=== PATIENT | male | born 1970 | race African-American/Black ===

== ENCOUNTER 2019-12-18 15:25 | Emergency (ER) | payer OTHER ==
[~2019-12-18] VITALS: Ht 188 cm; Wt 127.2 kg
--- NOTE | 2019-12-18 15:40 | PHYS DOC ---
Adult General Chief Complaint Chief Complaint: UPPER EXTREMITY INJURY HPI HPI Patient is a 49 year old -[place] male who is brought in from [facility] secondary to concern for right arm injury. Patient reportedly slipped and fell in the shower last night and has pain in the right forearm just distal to the elbow. He also complains of pain in the right shoulder and the right wrist. Complains of numbness in fingers 3 4 and 5 on the right. No medication given prior to arrival. Pain is 8/10 Review of Systems Review of Systems All other systems were reviewed and found to be within normal limits, except as documented in this note. Physical Exam Physical Exam Constitutional: Well developed, well nourished, no acute distress, non-toxic appearance. [] HENT: Normocephalic, atraumatic, bilateral external ears normal, oropharynx moist, no oral exudates, nose normal. [] Eyes: PERRLA, EOMI, conjunctiva normal, no discharge. [] Neck: Normal range of motion, no tenderness, supple, no stridor. [] Cardiovascular:Heart rate regular rhythm, no murmur [] Lungs & Thorax: Bilateral breath sounds clear to auscultation [] Abdomen: Bowel sounds normal, soft, no tenderness, no masses, no pulsatile masses. [] Skin: Warm, dry, no erythema, no rash. [] Back: No tenderness, no CVA tenderness. [] Extremities: Patient has some swelling to the posterior lateral aspect of the right forearm with tenderness to palpation just distal to the elbow. He complains of numbness in the fingers 3 through 5. No other obvious deformities. Neurologic: Alert and oriented X 3, no focal deficits noted. [] Psychologic: Affect normal, judgement normal, mood normal. [] Current Patient Data Vital Signs Vital Signs Date Time Temp Pulse Resp B/P (MAP) Pulse Ox O2 Delivery O2 Flow Rate FiO2 12/18/19 15:28 97.9 54 17 113/56 (75) 98 Room Air 97.9 EKG EKG [] Radiology/Procedures Radiology/Procedures WRIST 3V RIGHT, FOREARM RIGHT, ELBOW RIGHT 3V, SHOULDER 2+V RIGHT History: Pain after a fall Comparison: None. Right wrist radiographs: Findings: 3 views of the right wrist are submitted. No acute fracture or dislocation is identified. IMPRESSION: 1. No acute osseous abnormality is identified by radiographs. Right elbow radiographs: FINDINGS: 3 views of the right elbow are submitted. There is mild cortical deformity of the right radial head suspicious for nondisplaced fracture although no significant displacement of the fat pads about the elbow. IMPRESSION: 1. Findings are suspicious for nondisplaced right radial head fracture. Right forearm: 2 views of the right forearm are submitted. No acute fracture or dislocation is identified of the right forearm by radiographs other than some bony irregularity of the right radial head as described for elbow radiographs. IMPRESSION: 1. Other than some mild bony irregularity as described for elbow radiographs of the right radial head, no acute osseous abnormality is identified by radiographs. Right shoulder radiographs: FINDINGS: 3 views of the right shoulder submitted. There is mild degenerative change of the right acromioclavicular joint. No acute fracture or dislocation is identified by radiographs. IMPRESSION: 1. No acute osseous abnormality is identified by radiographs.[] Course & Med Decision Making Course & Med Decision Making Pertinent Labs and Imaging studies reviewed. (See chart for details) 1721: X-rays suspicious for a radial head fracture. Patient will be placed in a posterior long-arm splint and a sling and will follow up orthopedics outpatient. 1724: Patient placed in a posterior long-arm splint and sling by nursing staff. Neurovascular intact post application patient tolerated well. Dragon Disclaimer Dragon Disclaimer This electronic medical record was generated, in whole or in part, using a voice recognition dictation system. Departure Departure Impression: Primary Impression: Right radial head fracture Additional Impression: Fall Disposition: 01 HOME, SELF-CARE Condition: STABLE Referrals: NO PCP (PCP) JORGE RAMIREZ MD Please call for follow up tomorrow. Patient Instructions: Radial Head Fracture Additional Instructions: Please call orthopedics for follow up tomorrow. Please wear sling and keep splint clean and dry. Scripts Hydrocodone/Apap 5-325 (NORCO 5-325 TABLET) 1 Each Tablet 1 TAB PO PRN Q6HRS PRN for PAIN, #10 TAB 0 Refills Prov: STEPHANIE NGUYEN DO 12/18/19 Ibuprofen (IBUPROFEN) 800 Mg Tablet 800 MG PO PRN Q8HRS PRN for INFLAMMATION, #20 TAB Prov: STEPHANIE NGUYEN DO 12/18/19 Problem Qualifiers STEPHANIE NGUYEN DO Dec 18, 2019 15:40
--- NOTE | 2019-12-18 17:16 | RAD ---
WRIST 3V RIGHT, FOREARM RIGHT, ELBOW RIGHT 3V, SHOULDER 2+V RIGHT History: Pain after a fall Comparison: None. Right wrist radiographs: Findings: 3 views of the right wrist are submitted. No acute fracture or dislocation is identified. IMPRESSION: 1. No acute osseous abnormality is identified by radiographs. Right elbow radiographs: FINDINGS: 3 views of the right elbow are submitted. There is mild cortical deformity of the right radial head suspicious for nondisplaced fracture although no significant displacement of the fat pads about the elbow. IMPRESSION: 1. Findings are suspicious for nondisplaced right radial head fracture. Right forearm: 2 views of the right forearm are submitted. No acute fracture or dislocation is identified of the right forearm by radiographs other than some bony irregularity of the right radial head as described for elbow radiographs. IMPRESSION: 1. Other than some mild bony irregularity as described for elbow radiographs of the right radial head, no acute osseous abnormality is identified by radiographs. Right shoulder radiographs: FINDINGS: 3 views of the right shoulder submitted. There is mild degenerative change of the right acromioclavicular joint. No acute fracture or dislocation is identified by radiographs. IMPRESSION: 1. No acute osseous abnormality is identified by radiographs. Electronically signed by: Jhonatan Saeed MD (12/18/2019 5:14 PM) [facility]
[2019-12-18] MEDS ORDERED: HYDR-3164 PO (17:23)
[2019-12-18] MEDS ORDERED: IBUP-1060 PO (17:23)
[2019-12-18] MEDS ORDERED: HYDROcodone/APAP 5/325MG 1 TAB TABLET PO ONE (17:30)
[2019-12-18 17:38] VITALS: BP 136/77
== END 2019-12-18 18:05 | disposition home or self-care (01) ==
LOC: EEVIPCON 15:25 → ER 15:25
DX: S52.121A Displaced fracture of head of right radius, initial encounter for closed fracture (principal); M25.511 Pain in right shoulder; M25.531 Pain in right wrist; W18.2XXA Fall in (into) shower or empty bathtub, initial encounter; Y93.89 Activity, other specified; Y92.89 Other specified places as the place of occurrence of the external cause; Y99.8 Other external cause status
CPT/HCPCS: 29105; 73030; 73080; 73090; 73110; 99285-25